=== PATIENT | male | born 1965 | race Two or more races ===

== ENCOUNTER 2019-03-01 16:57 | Inpatient (IN) | payer MEDICAID ==
[~2019-03-01] VITALS: Ht 172.7 cm; Wt 67.6 kg
[2019-03-01] MEDS ORDERED: SODIUM CHLORIDE 0.9% 1,000 ML IV ONE (17:07)
[2019-03-01] MEDS ORDERED: KETOROLAC 30MG/ML VIAL IV STA (17:07)
[2019-03-01] MEDS ORDERED: ONDANSETRON HCL 4MG/2ML INJ IV STA (17:07)
[2019-03-01 19:16] LABS: HEMATOCRIT. 48.9 % (42.0-52.0); HEMOGLOBIN. 16.9 g/dL (14.0-18.0); MEAN CORPUSCULAR HEMOGLOBIN 30.9 pg (28.0-32.0); MEAN CORPUSCULAR VOLUME 89.9 fL (80.0-94.0); MEAN PLATELET VOLUME 7.9 fl (7.4-10.4); PLATELET 353 x1000/uL (130-400); RED BLOOD CELL COUNT 5.45 mill/uL (4.7-6.1); RED CELL DISTRIBUTION WIDTH 13.3 % (11.6-14.6)
[2019-03-01 19:20] LABS: CHLORIDE 100 mEq/L (98-107)
[2019-03-01 19:21] LABS: INR 1.1; PROTHROMBIN TIME 11.2 sec (9.6-11.0)
[2019-03-01] MEDS ORDERED: PIPERACILLIN/TAZ 3.375G PREMIX 50 ML IV ONE (20:15)
[2019-03-01 20:43] LABS: PLATELET ESTIMATE NORMAL
[2019-03-01 21:03] LABS: CLARITY URINE CLOUDY (CLEAR); COLOR URINE YELLOW (YELLOW); KETONES URINE TRACE (NEGATIVE); LEUKOCYTE ESTERASE URINE NEGATIVE (NEGATIVE); NITRITE URINE NEGATIVE (NEGATIVE); OCCULT BLOOD URINE NEGATIVE (NEGATIVE); PH URINE 6.5 (4.5-8.0); PROTEIN URINE 1+ (NEGATIVE); SPECIFIC GRAVITY URINE 1.023 (1.005-1.030); UROBILINOGEN URINE 0.2 E.U./dL (0.2-1.0)
[2019-03-01] MEDS ORDERED: LIDOCAINE HCL/PF 1% 10 MG/ML 5ML VIAL ONE (21:30)
[2019-03-01] MEDS ORDERED: MIDAZOLAM HCL 2 MG/2 ML VIAL ONE (21:30)
[2019-03-01] MEDS ORDERED: ROCURONIUM BROMIDE 10MG/ML VIAL 5ML IV ONE (21:30)
[2019-03-01] MEDS ORDERED: FENTANYL CITRATE/PF 50MCG/ML 2ML VIAL ONE (21:30)
[2019-03-01] MEDS ORDERED: SUCCINYLCHOLINE CHLORIDE 200MG/10ML IV ONE (21:30)
[2019-03-01] MEDS ORDERED: PROPOFOL 200MG/20ML VIAL IV ONE (21:30)
[2019-03-01] MEDS ORDERED: PHENYLEPHRINE HCL 10 MG/ML 1ML (IV VIAL) IV ONE (21:31)
[2019-03-01] MEDS ORDERED: EPHEDRINE SULFATE 50MG/ML VIAL ONE (21:31)
[2019-03-01] MEDS ORDERED: SODIUM CHLORIDE 0.9% 10ML VIAL ONE (21:39)
[2019-03-01] MEDS ORDERED: METRONIDAZOLE 500 MG PREMIX 0 ML IV ONE (21:41)
[2019-03-01] MEDS ORDERED: LEVOFLOXACIN 500MG PREMIX 0 ML IV ONE (21:41)
[2019-03-01] MEDS ORDERED: BUPIVACAINE HCL 0.5% (5MG/ML) 50ML ONE (21:41)
[2019-03-01] MEDS ORDERED: ACETAMINOPHEN 650MG SUPP PR PRN (22:45)
[2019-03-01] MEDS ORDERED: ONDANSETRON HCL 4MG/2ML INJ IV PRN ×2 (22:45→23:15)
[2019-03-01] MEDS ORDERED: HYDROMORPHONE HCL/PF 2MG/ML (OR) ONE (23:04)
[2019-03-01] MEDS ORDERED: MEPERIDINE HCL/PF 25MG/ML CPJ IV PRN (23:15)
[2019-03-01] MEDS ORDERED: LABETALOL 5MG/ML SYR 20 MG/4 ML SYRINGE IV PRN (23:15)
[2019-03-01] MEDS ORDERED: HYDROMORPHONE HCL/PF 2MG/ML CPJ IV PRN (23:15)
[2019-03-01] MEDS ORDERED: GLYCOPYRROLATE 0.2 MG/ML 2ML VIAL ONE (23:18)
[2019-03-01] MEDS ORDERED: NEOSTIGMINE METHYLSULFATE 1MG/ML 10 ML VIAL ONE (23:19)
[2019-03-01] MEDS ORDERED: DEXAMETHASONE 4MG/ML 1ML VIAL ONE (23:31)
[2019-03-02] MEDS ORDERED: NALOXONE INJ IV PRN (00:15)
[2019-03-02] MEDS ORDERED: HYDROMORPHONE PCA 10MG/50ML IV PRN (00:15)
[2019-03-02] MEDS ORDERED: ONDANSETRON INJ IV PRN (00:15)
[2019-03-02 01:30] VITALS: BP 127/85
[2019-03-02] MEDS: PIPERACILLIN/TAZOBACTAM 3.375 G in DEXT 5% WATER 100 ML IV SCH ×4 (02:31→21:39)
[2019-03-02] MEDS: DEXT 5%/0.45% NACL KCL 20MEQ/L 1,000 ML IV SCH ×3 (02:32→21:40)
[2019-03-02 04:00] VITALS: BP 125/86
[2019-03-02 08:00] VITALS: BP 135/88
[2019-03-02] MEDS: FAMOTIDINE 20MG/2ML VIAL IV SCH ×2 (09:21→20:20)
[2019-03-02 10:27] LABS: HEMATOCRIT. 47.6 % (42.0-52.0); MEAN CORPUSCULAR HEMOGLOBIN 30.4 pg (28.0-32.0); MEAN CORPUSCULAR VOLUME 90.5 fL (80.0-94.0); MEAN PLATELET VOLUME 8.4 fl (7.4-10.4); PLATELET 331 x1000/uL (130-400); RED BLOOD CELL COUNT 5.26 mill/uL (4.7-6.1); RED CELL DISTRIBUTION WIDTH 13.3 % (11.6-14.6)
[2019-03-02 10:36] LABS: CHLORIDE 105 mEq/L (98-107)
[2019-03-02 12:00] VITALS: BP 140/97
[2019-03-02 16:00] VITALS: BP 108/68
[2019-03-02 16:20] LABS: ATYPICAL LYMPHOCYTES 1
[2019-03-02 16:21] LABS: PLATELET ESTIMATE NORMAL
[2019-03-02 20:00] VITALS: BP 122/85
[2019-03-02 20:35] LABS: *AMPHETAMINES SCREEN URINE PRESUMTIVE POSITIVE (NEGATIVE); *BARBITURATES SCREEN URINE NEGATIVE (NEGATIVE); *BENZODIAZEPINES SCREEN URINE PRESUMTIVE POSITIVE (NEGATIVE); *COCAINE SCREEN URINE NEGATIVE (NEGATIVE)
[2019-03-02 20:36] LABS: CANNABINOID URINE SCREEN NEGATIVE (NEGATIVE); METHADONE URINE SCREEN NEGATIVE (NEGATIVE); OPIATES URINE SCREEN PRESUMTIVE POSITIVE (NEGATIVE); PHENCYCLIDINE URINE SCREEN NEGATIVE (NEGATIVE)
[2019-03-03] VITALS: BP 110/76
[2019-03-03 04:00] VITALS: BP 118/70
[2019-03-03] MEDS: PIPERACILLIN/TAZOBACTAM 3.375 G in DEXT 5% WATER 100 ML IV SCH ×4 (05:14→22:07)
[2019-03-03] MEDS: DEXT 5%/0.45% NACL KCL 20MEQ/L 1,000 ML IV SCH ×2 (07:41→17:01)
[2019-03-03 08:25] LABS: HEMOGLOBIN. 14.8 g/dL (14.0-18.0); MEAN CORPUSCULAR HEMOGLOBIN 30.6 pg (28.0-32.0); MEAN CORPUSCULAR VOLUME 90.9 fL (80.0-94.0); MEAN PLATELET VOLUME 8.6 fl (7.4-10.4); PLATELET 266 x1000/uL (130-400); RED BLOOD CELL COUNT 4.84 mill/uL (4.7-6.1); RED CELL DISTRIBUTION WIDTH 13.7 % (11.6-14.6)
[2019-03-03 08:35] LABS: CHLORIDE 100 mEq/L (98-107)
[2019-03-03] MEDS: FAMOTIDINE 20MG/2ML VIAL IV SCH ×2 (10:43→20:26)
[2019-03-03 10:47] LABS: PLATELET ESTIMATE NORMAL
[2019-03-03 16:00] VITALS: BP 124/77
[2019-03-03 20:00] VITALS: BP 112/69
[2019-03-04] VITALS: BP 119/81
[2019-03-04] MEDS: DEXT 5%/0.45% NACL KCL 20MEQ/L 1,000 ML IV SCH ×2 (03:09→13:11)
[2019-03-04 04:00] VITALS: BP 125/79
[2019-03-04] MEDS: PIPERACILLIN/TAZOBACTAM 3.375 G in DEXT 5% WATER 100 ML IV SCH ×4 (06:08→22:05)
[2019-03-04 08:00] VITALS: BP 126/78
[2019-03-04 08:00] LABS: HEMATOCRIT. 45.7 % (42.0-52.0); HEMOGLOBIN. 15.7 g/dL (14.0-18.0); MEAN CORPUSCULAR HEMOGLOBIN 30.9 pg (28.0-32.0); MEAN CORPUSCULAR VOLUME 90.2 fL (80.0-94.0); MEAN PLATELET VOLUME 8.3 fl (7.4-10.4); PLATELET 298 x1000/uL (130-400); RED BLOOD CELL COUNT 5.07 mill/uL (4.7-6.1); RED CELL DISTRIBUTION WIDTH 13.2 % (11.6-14.6)
[2019-03-04 08:28] LABS: CHLORIDE 98 mEq/L (98-107)
[2019-03-04] MEDS: FAMOTIDINE 20MG/2ML VIAL IV SCH ×2 (09:11→22:05)
[2019-03-04 12:00] VITALS: BP 129/83
[2019-03-04 16:00] VITALS: BP 121/81
[2019-03-04] MEDS: MORPHINE SULFATE 2 MG/ML CPJ (NOT FOR IM USE) IV PRN ×2 (17:31→19:56)
[2019-03-04 20:00] VITALS: BP 113/76
[2019-03-05] VITALS: BP 107/71
[2019-03-05] MEDS: MORPHINE SULFATE 2 MG/ML CPJ (NOT FOR IM USE) IV PRN ×5 (03:34→18:54)
[2019-03-05] MEDS: PIPERACILLIN/TAZOBACTAM 3.375 G in DEXT 5% WATER 100 ML IV SCH ×2 (03:34→10:25)
[2019-03-05 04:00] VITALS: BP 105/69
[2019-03-05] MEDS: DEXT 5%/0.45% NACL KCL 20MEQ/L 1,000 ML IV SCH ×2 (05:22→09:02)
[2019-03-05 06:35] LABS: PLATELET ESTIMATE NORMAL
[2019-03-05 07:02] LABS: CHLORIDE 100 mEq/L (98-107)
[2019-03-05 07:13] LABS: HEMATOCRIT. 43.1 % (42.0-52.0); HEMOGLOBIN. 14.7 g/dL (14.0-18.0); MEAN CORPUSCULAR VOLUME 90.7 fL (80.0-94.0); PLATELET 316 x1000/uL (130-400); RED BLOOD CELL COUNT 4.75 mill/uL (4.7-6.1); RED CELL DISTRIBUTION WIDTH 13.3 % (11.6-14.6)
[2019-03-05 08:00] VITALS: BP 119/83
[2019-03-05] MEDS: FAMOTIDINE 20MG/2ML VIAL IV SCH ×2 (09:02→20:33)
[2019-03-05 12:00] VITALS: BP 118/85
[2019-03-05] MEDS ORDERED: HYDROCODONE/ACETAMINOPHEN 5/325MG TABLET PO PRN (15:45)
[2019-03-05 16:00] VITALS: BP 124/83
[2019-03-05] MEDS: CEFAZOLIN 1000MG PREMIX 50 ML IV SCH (18:50)
[2019-03-05 20:00] VITALS: BP 138/92
[2019-03-06] VITALS: BP 153/102
[2019-03-06] MEDS: CEFAZOLIN 1000MG PREMIX 50 ML IV SCH ×3 (02:15→17:54)
[2019-03-06 04:00] VITALS: BP 148/101
[2019-03-06 06:32] LABS: CHLORIDE 94 mEq/L (98-107)
[2019-03-06 06:38] LABS: HEMATOCRIT. 45.8 % (42.0-52.0); HEMOGLOBIN. 15.5 g/dL (14.0-18.0); MEAN CORPUSCULAR HEMOGLOBIN 30.5 pg (28.0-32.0); MEAN CORPUSCULAR VOLUME 90.3 fL (80.0-94.0); MEAN PLATELET VOLUME 7.8 fl (7.4-10.4); PLATELET 439 x1000/uL (130-400); RED BLOOD CELL COUNT 5.08 mill/uL (4.7-6.1); RED CELL DISTRIBUTION WIDTH 13.2 % (11.6-14.6)
[2019-03-06 07:07] LABS: PLATELET ESTIMATE NORMAL
[2019-03-06 08:00] VITALS: BP 129/86
[2019-03-06] MEDS: FAMOTIDINE 20MG/2ML VIAL IV SCH ×2 (09:36→21:04)
[2019-03-06] MEDS: DEXT 5%/0.45% NACL KCL 20MEQ/L 1,000 ML IV SCH (11:42)
[2019-03-06 12:00] VITALS: BP 137/91
[2019-03-06 12:40] LABS: PLATELET ESTIMATE INCREASED
[2019-03-06 16:00] VITALS: BP 128/88
[2019-03-06 20:00] VITALS: BP 122/80
[2019-03-07] VITALS: BP 120/83
[2019-03-07] MEDS: CEFAZOLIN 1000MG PREMIX 50 ML IV SCH ×3 (01:55→17:10)
[2019-03-07 04:00] VITALS: BP 131/84
[2019-03-07 07:27] LABS: BASOPHILS % 0.4 % (0.0-2.0); EOSINOPHILS % 1.3 % (0.0-5.0); HEMATOCRIT. 43.7 % (42.0-52.0); HEMOGLOBIN. 14.8 g/dL (14.0-18.0); MEAN CORPUSCULAR HEMOGLOBIN 30.5 pg (28.0-32.0); MEAN CORPUSCULAR VOLUME 89.6 fL (80.0-94.0); MEAN PLATELET VOLUME 7.9 fl (7.4-10.4); MONOCYTES % 11.5 % (2.0-8.0); NEUTROPHILS % 77.8 % (40.0-76.0); PLATELET 399 x1000/uL (130-400); RED BLOOD CELL COUNT 4.87 mill/uL (4.7-6.1); RED CELL DISTRIBUTION WIDTH 13.2 % (11.6-14.6)
[2019-03-07 07:46] LABS: CHLORIDE 96 mEq/L (98-107)
[2019-03-07 08:00] VITALS: BP 134/89
[2019-03-07] MEDS: FAMOTIDINE 20MG/2ML VIAL IV SCH ×2 (08:22→22:18)
[2019-03-07] MEDS: DEXT 5%/0.45% NACL KCL 20MEQ/L 1,000 ML IV SCH ×2 (11:14→22:06)
[2019-03-07 12:00] VITALS: BP 129/87
[2019-03-07] MEDS ORDERED: AZITHROMYCIN 500 MG TABLET PO NR (12:45)
[2019-03-07 16:00] VITALS: BP 130/84
[2019-03-07 20:00] VITALS: BP 110/72
[2019-03-08] VITALS: BP 120/94
[2019-03-08] MEDS: CEFAZOLIN 1000MG PREMIX 50 ML IV SCH ×2 (02:25→09:23)
[2019-03-08 04:00] VITALS: BP 130/83
[2019-03-08 06:58] LABS: BASOPHILS % 0.4 % (0.0-2.0); EOSINOPHILS % 1.8 % (0.0-5.0); HEMATOCRIT. 43.7 % (42.0-52.0); LYMPHOCYTES % 9.5 % (20.0-50.0); MEAN CORPUSCULAR HEMOGLOBIN 30.7 pg (28.0-32.0); MEAN CORPUSCULAR VOLUME 89.2 fL (80.0-94.0); MEAN PLATELET VOLUME 7.5 fl (7.4-10.4); MONOCYTES % 11.8 % (2.0-8.0); NEUTROPHILS % 76.5 % (40.0-76.0); PLATELET 430 x1000/uL (130-400); RED CELL DISTRIBUTION WIDTH 13.4 % (11.6-14.6)
[2019-03-08 07:41] LABS: CHLORIDE 99 mEq/L (98-107)
[2019-03-08 08:00] VITALS: BP 130/88
[2019-03-08] MEDS: FAMOTIDINE 20MG/2ML VIAL IV SCH (09:23)
[2019-03-08 12:00] VITALS: BP 138/83
[2019-03-08 13:03] VITALS: BP 122/64
== END 2019-03-08 16:07 | disposition home or self-care (01) | DRG 710 ==
LOC: ER 16:57 → ENRESERV 21:23 → CANRESERV 21:23 → EDBEDREQSVC 23:14 → 6EST 23:15 → ENRESERV 23:17
PROVIDERS: ADMIT Internal Medicine; ATTEND Emergency Medicine
PROC: 0DU907Z Supplement Duodenum with Autologous Tissue Substitute, Open Approach (ICD-10-PCS; principal; 2019-03-01)
DX: A41.9 Sepsis, unspecified organism (principal); K63.1 Perforation of intestine (nontraumatic); K26.5 Chronic or unspecified duodenal ulcer with perforation; E87.1 Hypo-osmolality and hyponatremia; F15.90 Other stimulant use, unspecified, uncomplicated; K21.9 Gastro-esophageal reflux disease without esophagitis; R10.0 Acute abdomen; Z71.51 Drug abuse counseling and surveillance of drug abuser
CPT/HCPCS: 36415; 71045; 74018; 74176; 80048; 80053; 80305; 81003; 85025; 87070; 87075; 87077; 87186; 96361; 96365; 96375; 97116; 97162; 97535; 99291; J0330; J0690; J1100; J1170; J1885; J1956; J2250; J2270; J2370; J2405; J2543; J2704; J2710; J3010; J3490; J7030; J7060

== ENCOUNTER 2019-09-11 22:40 | Inpatient (IN) | payer MEDICAID, OTHER, SELFPAY ==
[~2019-09-11] VITALS: Ht 182.9 cm; Wt 71.7 kg
[2019-09-11] MEDS ORDERED: MORPHINE SULFATE 4 MG/ML CPJ (NOT FOR IM USE) IV STA (23:53)
[2019-09-11] MEDS ORDERED: SODIUM CHLORIDE 0.9% 1,000 ML IV ONE (23:53)
[2019-09-11] MEDS ORDERED: ONDANSETRON HCL 4MG/2ML INJ IV STA (23:53)
[2019-09-12] VITALS (36 sets, daily range): BP systolic 110–153; BP diastolic 64–109
[2019-09-12 00:06] LABS: CHLORIDE 100 mEq/L (98-107)
[2019-09-12 00:08] LABS: HEMATOCRIT. 55.3 % (42.0-52.0); HEMOGLOBIN. 18.8 g/dL (14.0-18.0); MEAN CORPUSCULAR HEMOGLOBIN 30.4 pg (28.0-32.0); MEAN CORPUSCULAR VOLUME 89.3 fL (80.0-94.0); MEAN PLATELET VOLUME 8.8 fl (7.4-10.4); PLATELET 309 x1000/uL (130-400); RED CELL DISTRIBUTION WIDTH 13.8 % (11.6-14.6)
[2019-09-12 00:09] LABS: ETHANOL BLOOD < 10 mg/dL
[2019-09-12 00:13] LABS: INR 1.1; PROTHROMBIN TIME 11.4 sec (9.6-11.0)
[2019-09-12 00:31] LABS: CLARITY URINE CLEAR (CLEAR); COLOR URINE DARK YELLOW (YELLOW); KETONES URINE 3+ (NEGATIVE); LEUKOCYTE ESTERASE URINE NEGATIVE (NEGATIVE); NITRITE URINE NEGATIVE (NEGATIVE); OCCULT BLOOD URINE TRACE (NEGATIVE); PROTEIN URINE 2+ (NEGATIVE); SPECIFIC GRAVITY URINE 1.034 (1.005-1.030)
[2019-09-12] MEDS ORDERED: IOHEXOL-300 100 ML BOTTLE ONE (01:09)
[2019-09-12] MEDS ORDERED: PIPERACILLIN/TAZOBACTAM 3.375GM/50ML PREMIX IV ONE (01:15)
[2019-09-12] MEDS ORDERED: PIPERACILLIN/TAZ 3.375G PREMIX 50 ML IV NR (01:30)
[2019-09-12] MEDS ORDERED: MORPHINE SULFATE 4 MG/ML CPJ (NOT FOR IM USE) IV ONE (01:30)
[2019-09-12] MEDS ORDERED: SODIUM CHLORIDE 0.9% 1,000 ML IV ONE (01:30)
[2019-09-12] MEDS ORDERED: LIDOCAINE HCL 1% 20ML VIAL (Pyxis) INJ ONE (01:42)
[2019-09-12 06:11] LABS: *COCAINE SCREEN URINE NEGATIVE (NEGATIVE); METHADONE URINE SCREEN NEGATIVE (NEGATIVE)
[2019-09-12 06:12] LABS: *AMPHETAMINES SCREEN URINE PRESUMTIVE POSITIVE (NEGATIVE); *BARBITURATES SCREEN URINE NEGATIVE (NEGATIVE); *BENZODIAZEPINES SCREEN URINE NEGATIVE (NEGATIVE); CANNABINOID URINE SCREEN NEGATIVE (NEGATIVE); OPIATES URINE SCREEN NEGATIVE (NEGATIVE); PHENCYCLIDINE URINE SCREEN NEGATIVE (NEGATIVE)
[2019-09-12] MEDS ORDERED: ONDANSETRON HCL 4MG/2ML INJ IV PRN (06:30)
[2019-09-12] MEDS ORDERED: MIDAZOLAM HCL 2 MG/2 ML VIAL ONE (06:54)
[2019-09-12] MEDS ORDERED: ROCURONIUM BROMIDE 10MG/ML VIAL 5ML IV ONE ×2 (06:54→07:39)
[2019-09-12] MEDS ORDERED: FENTANYL CITRATE/PF 50MCG/ML 2ML VIAL ONE (06:54)
[2019-09-12] MEDS ORDERED: PROPOFOL 200MG/20ML VIAL IV ONE (06:54)
[2019-09-12] MEDS ORDERED: METHYLENE BLUE 50 MG/10 ML AMP IV ONE (07:19)
[2019-09-12] MEDS ORDERED: ONDANSETRON HCL 4MG/2ML INJ ONE (07:38)
[2019-09-12] MEDS ORDERED: LIDOCAINE HCL/PF 1% 10 MG/ML 5ML VIAL ONE (07:38)
[2019-09-12] MEDS ORDERED: NEOSTIGMINE METHYLSULFATE 1MG/ML 10 ML VIAL ONE (08:37)
[2019-09-12] MEDS ORDERED: GLYCOPYRROLATE 0.2 MG/ML 2ML VIAL ONE (08:37)
[2019-09-12] MEDS ORDERED: DEXT 5%/0.45% NACL KCL 20MEQ/L 1,000 ML IV SCH (10:30)
[2019-09-12] MEDS ORDERED: IPRATROPIUM/ALBUTEROL 0.5-3(2.5)MG/3ML NEB HHN PRN (10:30)
[2019-09-12] MEDS ORDERED: MAGNESIUM/ALUMINUM HYDROXIDE/SIMETHICONE 30ML UDC PO PRN (12:00)
[2019-09-12] MEDS ORDERED: HYDRALAZINE 20MG/ML VIAL IV PRN (12:00)
[2019-09-12] MEDS ORDERED: LORAZEPAM 2MG/ML CPJ IV PRN (12:00)
[2019-09-12] MEDS ORDERED: ACETAMINOPHEN 325MG TABLET PO PRN (12:00)
[2019-09-12] MEDS ORDERED: CLONIDINE 0.1MG TABLET PO PRN (12:00)
[2019-09-12] MEDS ORDERED: GUAIFENESIN 200MG/10ML SUGAR FREE UDC PO PRN (12:00)
[2019-09-12 12:01] LABS: PLATELET ESTIMATE NORMAL
[2019-09-12] MEDS: MORPHINE SULFATE 4 MG/ML CPJ (NOT FOR IM USE) IV PRN ×2 (12:46→17:35)
[2019-09-12] MEDS: PIPERACILLIN/TAZOBACTAM 3.375 G in DEXT 5% WATER 100 ML IV SCH ×2 (13:57→18:19)
[2019-09-12] MEDS: SODIUM CHLORIDE 0.9% INJ 3ML FLUSH IVF SCH ×2 (14:01→22:00)
[2019-09-12] MEDS ORDERED: SODIUM CHLORIDE 0.9% 500 ML IV ONE (15:30)
[2019-09-12] MEDS ORDERED: METOPROLOL TARTRATE 5MG/5ML VIAL IV PRN (15:30)
[2019-09-12 17:02] LABS: CHLORIDE 108 mEq/L (98-107)
[2019-09-12] MEDS: DEXT 5%/0.45% NACL KCL 20MEQ/L 1,000 ML IV SCH (23:00)
[2019-09-13] VITALS (34 sets, daily range): BP systolic 96–145; BP diastolic 49–92
[2019-09-13 05:53] LABS: BASOPHILS % 0.3 % (0.0-2.0); EOSINOPHILS % 0.1 % (0.0-5.0); HEMOGLOBIN. 14.3 g/dL (14.0-18.0); LYMPHOCYTES % 7.6 % (20.0-50.0); MEAN CORPUSCULAR HEMOGLOBIN 30.6 pg (28.0-32.0); MEAN CORPUSCULAR VOLUME 89.9 fL (80.0-94.0); MEAN PLATELET VOLUME 8.8 fl (7.4-10.4); MONOCYTES % 6.8 % (2.0-8.0); NEUTROPHILS % 85.2 % (40.0-76.0); PLATELET 243 x1000/uL (130-400); RED BLOOD CELL COUNT 4.68 mill/uL (4.7-6.1); RED CELL DISTRIBUTION WIDTH 14.1 % (11.6-14.6)
[2019-09-13 05:58] LABS: CHLORIDE 105 mEq/L (98-107)
[2019-09-13] MEDS: PIPERACILLIN/TAZOBACTAM 3.375 G in DEXT 5% WATER 100 ML IV SCH ×5 (06:03→17:32)
[2019-09-13] MEDS: SODIUM CHLORIDE 0.9% INJ 3ML FLUSH IVF SCH ×3 (06:04→21:31)
[2019-09-13] MEDS: MORPHINE SULFATE 2 MG/ML CPJ (NOT FOR IM USE) IV PRN (06:44)
[2019-09-13] MEDS: ENOXAPARIN 40MG/0.4ML SYR SUBCUT SCH (08:18)
[2019-09-13] MEDS: PANTOPRAZOLE SODIUM 40 MG/VIAL IV SCH (08:18)
[2019-09-13] MEDS: DEXT 5%/0.45% NACL KCL 20MEQ/L 1,000 ML IV SCH ×2 (09:00→19:56)
[2019-09-13 15:56] LABS: CREATINE KINASE 269 IU/L (39-308)
[2019-09-13 15:57] LABS: CREATINE KINASE MB FRACTION 1.4 ng/mL (0.5-3.6)
[2019-09-14] VITALS (13 sets, daily range): BP systolic 89–130; BP diastolic 55–82
[2019-09-14] MEDS: PIPERACILLIN/TAZOBACTAM 3.375 G in DEXT 5% WATER 100 ML IV SCH ×5 (00:41→23:45)
[2019-09-14 00:42] LABS: CREATINE KINASE 228 IU/L (39-308)
[2019-09-14 00:43] LABS: CREATINE KINASE MB FRACTION 1.2 ng/mL (0.5-3.6)
[2019-09-14] MEDS: ONDANSETRON HCL 4MG/2ML INJ IV PRN (03:16)
[2019-09-14] MEDS: SODIUM CHLORIDE 0.9% INJ 3ML FLUSH IVF SCH ×3 (05:24→21:37)
[2019-09-14] MEDS: DEXT 5%/0.45% NACL KCL 20MEQ/L 1,000 ML IV SCH ×3 (06:11→23:45)
[2019-09-14 06:26] LABS: CREATINE KINASE 195 IU/L (39-308)
[2019-09-14 06:27] LABS: CREATINE KINASE MB FRACTION < 1.0 ng/mL (0.5-3.6)
[2019-09-14] MEDS: ENOXAPARIN 40MG/0.4ML SYR SUBCUT SCH (10:08)
[2019-09-14] MEDS: PANTOPRAZOLE SODIUM 40 MG/VIAL IV SCH (10:08)
[2019-09-15] VITALS (11 sets, daily range): BP systolic 111–145; BP diastolic 63–94
[2019-09-15] MEDS: SODIUM CHLORIDE 0.9% INJ 3ML FLUSH IVF SCH ×3 (05:20→22:30)
[2019-09-15] MEDS: PIPERACILLIN/TAZOBACTAM 3.375 G in DEXT 5% WATER 100 ML IV SCH ×4 (05:20→23:20)
[2019-09-15] MEDS: MORPHINE SULFATE 2 MG/ML CPJ (NOT FOR IM USE) IV PRN (05:58)
[2019-09-15 07:37] LABS: HEMATOCRIT 34.8 % (42.0-52.0); HEMOGLOBIN 12.3 g/dL (14.0-18.0); MEAN CORPUSCULAR HEMOGLOBIN 31.2 pg (28.0-32.0); MEAN CORPUSCULAR VOLUME 88.3 fL (80.0-94.0); PLATELET 288 x1000/uL (130-400); RED BLOOD CELL COUNT 3.94 mill/uL (4.7-6.1); RED CELL DISTRIBUTION WIDTH 13.9 % (11.6-14.6)
[2019-09-15 07:52] LABS: CHLORIDE 102 mEq/L (98-107)
[2019-09-15] MEDS: ENOXAPARIN 40MG/0.4ML SYR SUBCUT SCH (08:30)
[2019-09-15] MEDS: PANTOPRAZOLE SODIUM 40 MG/VIAL IV SCH (08:30)
[2019-09-15] MEDS: DEXT 5%/0.45% NACL KCL 20MEQ/L 1,000 ML IV SCH ×2 (11:18→22:29)
[2019-09-15] MEDS: ONDANSETRON HCL 4MG/2ML INJ IV PRN (13:43)
[2019-09-16] VITALS (12 sets, daily range): BP systolic 120–141; BP diastolic 73–102
[2019-09-16] MEDS: PIPERACILLIN/TAZOBACTAM 3.375 G in DEXT 5% WATER 100 ML IV SCH ×4 (05:16→23:42)
[2019-09-16] MEDS: SODIUM CHLORIDE 0.9% INJ 3ML FLUSH IVF SCH ×3 (05:18→21:24)
[2019-09-16] MEDS: ENOXAPARIN 40MG/0.4ML SYR SUBCUT SCH (08:24)
[2019-09-16] MEDS: PANTOPRAZOLE SODIUM 40 MG/VIAL IV SCH (08:24)
[2019-09-16] MEDS: DEXT 5%/0.45% NACL KCL 20MEQ/L 1,000 ML IV SCH (11:42)
[2019-09-16] MEDS ORDERED: LIDOCAINE HCL/EPINEPHRINE 1%-EPI 1:100,000 30 ML VIAL INFIL ONE (12:30)
[2019-09-16] MEDS ORDERED: LIDOCAINE 1%/EPI 1:100,000 10 ML VIAL IJ NR (13:00)
[2019-09-16] MEDS ORDERED: LIDOCAINE 1%/EPI 1:100,000 10 ML VIAL IJ SCH (13:00)
[2019-09-16] MEDS ORDERED: MORPHINE SULFATE 2 MG/ML CPJ (NOT FOR IM USE) IV PRN (14:30)
[2019-09-17] VITALS (12 sets, daily range): BP systolic 107–148; BP diastolic 43–97
[2019-09-17] MEDS: ONDANSETRON HCL 4MG/2ML INJ IV PRN (02:18)
[2019-09-17] MEDS: DEXT 5%/0.45% NACL KCL 20MEQ/L 1,000 ML IV SCH ×4 (04:44→23:19)
[2019-09-17] MEDS: SODIUM CHLORIDE 0.9% INJ 3ML FLUSH IVF SCH ×3 (05:06→22:00)
[2019-09-17] MEDS: PIPERACILLIN/TAZOBACTAM 3.375 G in DEXT 5% WATER 100 ML IV SCH ×3 (05:06→18:24)
[2019-09-17 05:48] LABS: CHLORIDE 99 mEq/L (98-107)
[2019-09-17 06:36] LABS: EOSINOPHILS % 5.1 % (0.0-5.0); HEMATOCRIT. 37.1 % (42.0-52.0); HEMOGLOBIN. 12.8 g/dL (14.0-18.0); LYMPHOCYTES % 9.8 % (20.0-50.0); MEAN CORPUSCULAR HEMOGLOBIN 30.2 pg (28.0-32.0); MEAN CORPUSCULAR VOLUME 87.6 fL (80.0-94.0); MEAN PLATELET VOLUME 7.5 fl (7.4-10.4); MONOCYTES % 10.9 % (2.0-8.0); NEUTROPHILS % 73.2 % (40.0-76.0); PLATELET 409 x1000/uL (130-400); RED BLOOD CELL COUNT 4.23 mill/uL (4.7-6.1); RED CELL DISTRIBUTION WIDTH 13.6 % (11.6-14.6)
[2019-09-17] MEDS ORDERED: POTASSIUM CHLORIDE 20MEQ/PACKET GT NR (08:00)
[2019-09-17] MEDS: PANTOPRAZOLE SODIUM 40 MG/VIAL IV SCH (08:19)
[2019-09-17] MEDS: ENOXAPARIN 40MG/0.4ML SYR SUBCUT SCH (08:20)
[2019-09-18] VITALS (12 sets, daily range): BP systolic 90–133; BP diastolic 50–83
[2019-09-18] MEDS: SODIUM CHLORIDE 0.9% INJ 3ML FLUSH IVF SCH ×3 (05:21→20:00)
[2019-09-18 06:56] LABS: CHLORIDE 99 mEq/L (98-107)
[2019-09-18 07:00] LABS: BASOPHILS % 1.2 % (0.0-2.0); HEMATOCRIT. 39.8 % (42.0-52.0); HEMOGLOBIN. 14.1 g/dL (14.0-18.0); LYMPHOCYTES % 11.1 % (20.0-50.0); MEAN CORPUSCULAR HEMOGLOBIN 31.1 pg (28.0-32.0); MEAN CORPUSCULAR VOLUME 87.7 fL (80.0-94.0); MEAN PLATELET VOLUME 7.3 fl (7.4-10.4); MONOCYTES % 11.1 % (2.0-8.0); NEUTROPHILS % 70.6 % (40.0-76.0); PLATELET 494 x1000/uL (130-400); RED BLOOD CELL COUNT 4.54 mill/uL (4.7-6.1); RED CELL DISTRIBUTION WIDTH 13.8 % (11.6-14.6)
[2019-09-18] MEDS: PANTOPRAZOLE SODIUM 40 MG/VIAL IV SCH (08:32)
[2019-09-18] MEDS: ENOXAPARIN 40MG/0.4ML SYR SUBCUT SCH (08:33)
[2019-09-18] MEDS: DEXT 5%/0.45% NACL KCL 20MEQ/L 1,000 ML IV SCH ×2 (10:07→20:00)
[2019-09-19] VITALS (11 sets, daily range): BP systolic 114–128; BP diastolic 61–92
[2019-09-19] MEDS: SODIUM CHLORIDE 0.9% INJ 3ML FLUSH IVF SCH ×3 (05:15→22:48)
[2019-09-19] MEDS: DEXT 5%/0.45% NACL KCL 20MEQ/L 1,000 ML IV SCH ×2 (05:15→15:37)
[2019-09-19 06:35] LABS: BASOPHILS % 0.6 % (0.0-2.0); EOSINOPHILS % 4.6 % (0.0-5.0); HEMATOCRIT. 40.6 % (42.0-52.0); HEMOGLOBIN. 14.2 g/dL (14.0-18.0); LYMPHOCYTES % 10.1 % (20.0-50.0); MEAN CORPUSCULAR HEMOGLOBIN 30.5 pg (28.0-32.0); MEAN CORPUSCULAR VOLUME 87.5 fL (80.0-94.0); MEAN PLATELET VOLUME 7.4 fl (7.4-10.4); MONOCYTES % 9.2 % (2.0-8.0); NEUTROPHILS % 75.5 % (40.0-76.0); PLATELET 555 x1000/uL (130-400); RED BLOOD CELL COUNT 4.64 mill/uL (4.7-6.1)
[2019-09-19 06:45] LABS: CHLORIDE 99 mEq/L (98-107)
[2019-09-19] MEDS: PANTOPRAZOLE SODIUM 40 MG/VIAL IV SCH (10:01)
[2019-09-19] MEDS: ENOXAPARIN 40MG/0.4ML SYR SUBCUT SCH (10:02)
[2019-09-20] VITALS (12 sets, daily range): BP systolic 84–138; BP diastolic 38–105
[2019-09-20] MEDS: DIPHENHYDRAMINE 50MG/ML VIAL IV PRN (02:40)
[2019-09-20] MEDS: DEXT 5%/0.45% NACL KCL 20MEQ/L 1,000 ML IV SCH ×3 (02:40→22:09)
[2019-09-20] MEDS: SODIUM CHLORIDE 0.9% INJ 3ML FLUSH IVF SCH ×3 (05:59→22:09)
[2019-09-20 06:33] LABS: BASOPHILS % 1.1 % (0.0-2.0); EOSINOPHILS % 4.9 % (0.0-5.0); HEMATOCRIT. 41.4 % (42.0-52.0); HEMOGLOBIN. 14.7 g/dL (14.0-18.0); LYMPHOCYTES % 11.7 % (20.0-50.0); MEAN CORPUSCULAR VOLUME 87.6 fL (80.0-94.0); MEAN PLATELET VOLUME 7.2 fl (7.4-10.4); NEUTROPHILS % 72.3 % (40.0-76.0); PLATELET 605 x1000/uL (130-400); RED BLOOD CELL COUNT 4.73 mill/uL (4.7-6.1); RED CELL DISTRIBUTION WIDTH 13.8 % (11.6-14.6)
[2019-09-20 06:39] LABS: CHLORIDE 94 mEq/L (98-107)
[2019-09-20] MEDS: DOCUSATE SODIUM 100MG CAPSULE PO PRN (10:55)
[2019-09-20] MEDS: ONDANSETRON HCL 4MG/2ML INJ IV PRN (10:55)
[2019-09-20] MEDS: PANTOPRAZOLE SODIUM 40 MG/VIAL IV SCH (10:55)
[2019-09-20] MEDS: ENOXAPARIN 40MG/0.4ML SYR SUBCUT SCH (10:55)
[2019-09-21] VITALS (12 sets, daily range): BP systolic 108–134; BP diastolic 72–98
[2019-09-21] MEDS: SODIUM CHLORIDE 0.9% INJ 3ML FLUSH IVF SCH ×3 (06:19→21:18)
[2019-09-21] MEDS: DEXT 5%/0.45% NACL KCL 20MEQ/L 1,000 ML IV SCH ×2 (08:40→17:48)
[2019-09-21] MEDS: ENOXAPARIN 40MG/0.4ML SYR SUBCUT SCH (08:40)
[2019-09-21] MEDS: PANTOPRAZOLE SODIUM 40 MG/VIAL IV SCH (08:40)
[2019-09-22] VITALS (12 sets, daily range): BP systolic 107–140; BP diastolic 54–82
[2019-09-22] MEDS: DIPHENHYDRAMINE 50MG/ML VIAL IV PRN (01:35)
[2019-09-22] MEDS: DEXT 5%/0.45% NACL KCL 20MEQ/L 1,000 ML IV SCH ×3 (03:52→23:21)
[2019-09-22] MEDS: SODIUM CHLORIDE 0.9% INJ 3ML FLUSH IVF SCH ×3 (05:02→21:24)
[2019-09-22 07:10] LABS: BASOPHILS % 1.2 % (0.0-2.0); EOSINOPHILS % 4.1 % (0.0-5.0); HEMOGLOBIN. 13.2 g/dL (14.0-18.0); LYMPHOCYTES % 16.8 % (20.0-50.0); MEAN CORPUSCULAR HEMOGLOBIN 30.9 pg (28.0-32.0); MEAN CORPUSCULAR VOLUME 86.6 fL (80.0-94.0); MEAN PLATELET VOLUME 7.6 fl (7.4-10.4); MONOCYTES % 9.1 % (2.0-8.0); NEUTROPHILS % 68.8 % (40.0-76.0); PLATELET 549 x1000/uL (130-400); RED BLOOD CELL COUNT 4.27 mill/uL (4.7-6.1); RED CELL DISTRIBUTION WIDTH 13.5 % (11.6-14.6)
[2019-09-22 07:51] LABS: CHLORIDE 95 mEq/L (98-107)
[2019-09-22] MEDS: PANTOPRAZOLE SODIUM 40 MG/VIAL IV SCH (08:46)
[2019-09-22] MEDS: ENOXAPARIN 40MG/0.4ML SYR SUBCUT SCH (08:47)
[2019-09-23] VITALS (12 sets, daily range): BP systolic 94–123; BP diastolic 41–79
[2019-09-23] MEDS: DIPHENHYDRAMINE 50MG/ML VIAL IV PRN (00:23)
[2019-09-23] MEDS: SODIUM CHLORIDE 0.9% INJ 3ML FLUSH IVF SCH ×3 (05:24→22:42)
[2019-09-23 07:13] LABS: BASOPHILS % 1.3 % (0.0-2.0); CHLORIDE 97 mEq/L (98-107); EOSINOPHILS % 4.2 % (0.0-5.0); HEMATOCRIT. 37.7 % (42.0-52.0); LYMPHOCYTES % 16.3 % (20.0-50.0); MEAN CORPUSCULAR HEMOGLOBIN 30.5 pg (28.0-32.0); MEAN CORPUSCULAR VOLUME 88.3 fL (80.0-94.0); MEAN PLATELET VOLUME 7.6 fl (7.4-10.4); MONOCYTES % 8.7 % (2.0-8.0); NEUTROPHILS % 69.5 % (40.0-76.0); PLATELET 488 x1000/uL (130-400); RED BLOOD CELL COUNT 4.27 mill/uL (4.7-6.1); RED CELL DISTRIBUTION WIDTH 13.5 % (11.6-14.6)
[2019-09-23] MEDS: ENOXAPARIN 40MG/0.4ML SYR SUBCUT SCH (09:12)
[2019-09-23] MEDS: PANTOPRAZOLE SODIUM 40 MG/VIAL IV SCH (09:12)
[2019-09-23] MEDS: DEXT 5%/0.45% NACL KCL 20MEQ/L 1,000 ML IV SCH ×2 (09:34→18:26)
[2019-09-24] VITALS (12 sets, daily range): BP systolic 100–153; BP diastolic 66–93
[2019-09-24] MEDS: DIPHENHYDRAMINE 50MG/ML VIAL IV PRN ×2 (00:31→23:30)
[2019-09-24] MEDS: DEXT 5%/0.45% NACL KCL 20MEQ/L 1,000 ML IV SCH ×2 (04:33→15:47)
[2019-09-24] MEDS: SODIUM CHLORIDE 0.9% INJ 3ML FLUSH IVF SCH ×3 (06:06→21:49)
[2019-09-24] MEDS: ENOXAPARIN 40MG/0.4ML SYR SUBCUT SCH (09:58)
[2019-09-24] MEDS: PANTOPRAZOLE SODIUM 40 MG/VIAL IV SCH (09:58)
[2019-09-25] VITALS (12 sets, daily range): BP systolic 90–129; BP diastolic 53–74
[2019-09-25] MEDS: DEXT 5%/0.45% NACL KCL 20MEQ/L 1,000 ML IV SCH ×3 (01:21→20:52)
[2019-09-25] MEDS: SODIUM CHLORIDE 0.9% INJ 3ML FLUSH IVF SCH ×2 (05:34→14:41)
[2019-09-25] MEDS: ENOXAPARIN 40MG/0.4ML SYR SUBCUT SCH (08:53)
[2019-09-25] MEDS: PANTOPRAZOLE SODIUM 40 MG/VIAL IV SCH (08:53)
[2019-09-25] MEDS: DIPHENHYDRAMINE 50MG/ML VIAL IV PRN (23:42)
[2019-09-26] VITALS (12 sets, daily range): BP systolic 90–141; BP diastolic 32–95
[2019-09-26] MEDS: SODIUM CHLORIDE 0.9% INJ 3ML FLUSH IVF SCH ×4 (00:39→23:26)
[2019-09-26 05:12] LABS: BASOPHILS % 1.4 % (0.0-2.0); HEMATOCRIT. 37.9 % (42.0-52.0); HEMOGLOBIN. 12.8 g/dL (14.0-18.0); LYMPHOCYTES % 19.7 % (20.0-50.0); MEAN CORPUSCULAR HEMOGLOBIN 29.8 pg (28.0-32.0); MEAN CORPUSCULAR VOLUME 88.4 fL (80.0-94.0); MEAN PLATELET VOLUME 7.7 fl (7.4-10.4); NEUTROPHILS % 65.9 % (40.0-76.0); PLATELET 456 x1000/uL (130-400); RED BLOOD CELL COUNT 4.29 mill/uL (4.7-6.1); RED CELL DISTRIBUTION WIDTH 13.5 % (11.6-14.6)
[2019-09-26 05:16] LABS: CHLORIDE 102 mEq/L (98-107)
[2019-09-26] MEDS: DEXT 5%/0.45% NACL KCL 20MEQ/L 1,000 ML IV SCH ×2 (06:36→17:43)
[2019-09-26] MEDS: PANTOPRAZOLE SODIUM 40 MG/VIAL IV SCH (08:41)
[2019-09-26] MEDS: ENOXAPARIN 40MG/0.4ML SYR SUBCUT SCH (08:42)
[2019-09-27] VITALS (13 sets, daily range): BP systolic 93–121; BP diastolic 46–92
[2019-09-27] MEDS: DIPHENHYDRAMINE 50MG/ML VIAL IV PRN ×2 (00:29→23:02)
[2019-09-27] MEDS: DEXT 5%/0.45% NACL KCL 20MEQ/L 1,000 ML IV SCH ×3 (03:02→22:52)
[2019-09-27] MEDS: SODIUM CHLORIDE 0.9% INJ 3ML FLUSH IVF SCH ×3 (06:05→22:14)
[2019-09-27 08:02] LABS: EOSINOPHILS % 4.4 % (0.0-5.0); HEMATOCRIT. 39.6 % (42.0-52.0); HEMOGLOBIN. 13.6 g/dL (14.0-18.0); LYMPHOCYTES % 20.1 % (20.0-50.0); MEAN CORPUSCULAR HEMOGLOBIN 30.3 pg (28.0-32.0); MEAN CORPUSCULAR VOLUME 88.6 fL (80.0-94.0); MEAN PLATELET VOLUME 8.1 fl (7.4-10.4); MONOCYTES % 9.5 % (2.0-8.0); PLATELET 488 x1000/uL (130-400); RED BLOOD CELL COUNT 4.47 mill/uL (4.7-6.1); RED CELL DISTRIBUTION WIDTH 13.9 % (11.6-14.6)
[2019-09-27] MEDS: PANTOPRAZOLE SODIUM 40 MG/VIAL IV SCH (08:10)
[2019-09-27] MEDS: ENOXAPARIN 40MG/0.4ML SYR SUBCUT SCH (08:10)
[2019-09-27 08:13] LABS: CHLORIDE 102 mEq/L (98-107)
[2019-09-28] VITALS (12 sets, daily range): BP systolic 93–120; BP diastolic 63–82
[2019-09-28] MEDS: DIPHENHYDRAMINE 50MG/ML VIAL IV PRN ×2 (03:45→22:20)
[2019-09-28] MEDS: SODIUM CHLORIDE 0.9% INJ 3ML FLUSH IVF SCH ×3 (06:00→22:00)
[2019-09-28] MEDS: PANTOPRAZOLE SODIUM 40 MG/VIAL IV SCH (10:25)
[2019-09-28] MEDS: ENOXAPARIN 40MG/0.4ML SYR SUBCUT SCH (10:26)
[2019-09-28] MEDS: DEXT 5%/0.45% NACL KCL 20MEQ/L 1,000 ML IV SCH ×2 (10:26→19:00)
[2019-09-29] VITALS (12 sets, daily range): BP systolic 104–115; BP diastolic 59–90
[2019-09-29] MEDS: DEXT 5%/0.45% NACL KCL 20MEQ/L 1,000 ML IV SCH ×2 (05:00→17:02)
[2019-09-29] MEDS: SODIUM CHLORIDE 0.9% INJ 3ML FLUSH IVF SCH ×3 (05:02→22:00)
[2019-09-29] MEDS: PANTOPRAZOLE SODIUM 40 MG/VIAL IV SCH (09:03)
[2019-09-29] MEDS: ENOXAPARIN 40MG/0.4ML SYR SUBCUT SCH (09:04)
[2019-09-29] MEDS ORDERED: EZ-HD SUSPENSION(BARIUM SULFATE 340GM) PO ONE (11:10)
[2019-09-29] MEDS ORDERED: BARIUM SULFATE 176 GM SUSP.RECON ONE (11:10)
[2019-09-30] VITALS (12 sets, daily range): BP systolic 91–132; BP diastolic 22–86
[2019-09-30] MEDS: DIPHENHYDRAMINE 50MG/ML VIAL IV PRN (00:11)
[2019-09-30] MEDS: DEXT 5%/0.45% NACL KCL 20MEQ/L 1,000 ML IV SCH ×3 (01:00→20:48)
[2019-09-30] MEDS: SODIUM CHLORIDE 0.9% INJ 3ML FLUSH IVF SCH ×3 (05:11→22:00)
[2019-09-30] MEDS ORDERED: DIATR MEGLU/DIATRIZOATE SOLN 30ML ONE ×2 (08:57→09:39)
[2019-09-30] MEDS: PANTOPRAZOLE SODIUM 40 MG/VIAL IV SCH (09:00)
[2019-09-30] MEDS: ENOXAPARIN 40MG/0.4ML SYR SUBCUT SCH (09:00)
[2019-09-30] MEDS ORDERED: DIATR MEGLU/DIATRIZOATE SOLN 120ML ONE (09:39)
[2019-09-30] MEDS ORDERED: DEXTROSE 50% WATER 50ML SYRINGE IV PRN (19:45)
[2019-09-30] MEDS: BLOOD SUGAR DIAGNOSTIC STRIP TEST SCH (22:00)
[2019-10-01] VITALS (12 sets, daily range): BP systolic 91–112; BP diastolic 32–77
[2019-10-01] MEDS: DIPHENHYDRAMINE 50MG/ML VIAL IV PRN ×2 (00:12→23:49)
[2019-10-01] MEDS: SODIUM CHLORIDE 0.9% INJ 3ML FLUSH IVF SCH ×3 (06:00→21:13)
[2019-10-01] MEDS: BLOOD SUGAR DIAGNOSTIC STRIP TEST SCH ×3 (06:00→21:13)
[2019-10-01 06:56] LABS: CHLORIDE 102 mEq/L (98-107)
[2019-10-01 06:57] LABS: INR 1.2; PARTIAL THROMBOPLASTIN TIME 31.9 sec (23.4-31.0); PROTHROMBIN TIME 12.2 sec (9.6-11.0)
[2019-10-01 07:12] LABS: HEMATOCRIT. 41.5 % (42.0-52.0); HEMOGLOBIN. 14.2 g/dL (14.0-18.0); MEAN CORPUSCULAR VOLUME 87.6 fL (80.0-94.0); MEAN PLATELET VOLUME 8.4 fl (7.4-10.4); PLATELET 482 x1000/uL (130-400); RED BLOOD CELL COUNT 4.74 mill/uL (4.7-6.1); RED CELL DISTRIBUTION WIDTH 13.6 % (11.6-14.6)
[2019-10-01] MEDS: DEXT 5%/0.45% NACL KCL 20MEQ/L 1,000 ML IV SCH ×2 (07:46→17:00)
[2019-10-01] MEDS: ENOXAPARIN 40MG/0.4ML SYR SUBCUT SCH (07:52)
[2019-10-01] MEDS: PANTOPRAZOLE SODIUM 40 MG/VIAL IV SCH (07:52)
[2019-10-01 13:01] LABS: PLATELET ESTIMATE INCREASED
[2019-10-01] MEDS ORDERED: PROPOFOL 200MG/20ML VIAL IV ONE ×2 (14:19→14:41)
[2019-10-01] MEDS ORDERED: MIDAZOLAM HCL 2 MG/2 ML VIAL ONE (14:19)
[2019-10-01] MEDS ORDERED: LIDOCAINE HCL/PF 1% 10 MG/ML 5ML VIAL ONE (14:20)
[2019-10-01] MEDS ORDERED: ONDANSETRON HCL 4MG/2ML INJ IV PRN (15:15)
[2019-10-02] VITALS (12 sets, daily range): BP systolic 92–143; BP diastolic 53–85
[2019-10-02] MEDS: DEXT 5%/0.45% NACL KCL 20MEQ/L 1,000 ML IV SCH ×3 (03:00→22:47)
[2019-10-02] MEDS: SODIUM CHLORIDE 0.9% INJ 3ML FLUSH IVF SCH ×3 (05:21→22:47)
[2019-10-02] MEDS: BLOOD SUGAR DIAGNOSTIC STRIP TEST SCH ×3 (05:39→22:45)
[2019-10-02] MEDS: DOCUSATE SODIUM 100MG CAPSULE PO PRN (08:42)
[2019-10-02] MEDS: ENOXAPARIN 40MG/0.4ML SYR SUBCUT SCH (08:42)
[2019-10-02] MEDS: PANTOPRAZOLE SODIUM 40 MG/VIAL IV SCH (08:42)
[2019-10-03] VITALS (12 sets, daily range): BP systolic 89–130; BP diastolic 53–91
[2019-10-03] MEDS: DIPHENHYDRAMINE 50MG/ML VIAL IV PRN (03:33)
[2019-10-03] MEDS: BLOOD SUGAR DIAGNOSTIC STRIP TEST SCH ×3 (05:44→22:00)
[2019-10-03] MEDS: SODIUM CHLORIDE 0.9% INJ 3ML FLUSH IVF SCH ×3 (05:44→20:26)
[2019-10-03] MEDS: ENOXAPARIN 40MG/0.4ML SYR SUBCUT SCH (08:50)
[2019-10-03] MEDS: PANTOPRAZOLE SODIUM 40 MG/VIAL IV SCH (08:50)
[2019-10-03] MEDS: DEXT 5%/0.45% NACL KCL 20MEQ/L 1,000 ML IV SCH ×2 (09:31→18:34)
[2019-10-04] VITALS (10 sets, daily range): BP systolic 83–115; BP diastolic 51–76
[2019-10-04] MEDS: DIPHENHYDRAMINE 50MG/ML VIAL IV PRN (01:17)
[2019-10-04] MEDS: DEXT 5%/0.45% NACL KCL 20MEQ/L 1,000 ML IV SCH ×2 (05:24→18:28)
[2019-10-04] MEDS: BLOOD SUGAR DIAGNOSTIC STRIP TEST SCH ×3 (05:24→21:38)
[2019-10-04] MEDS: SODIUM CHLORIDE 0.9% INJ 3ML FLUSH IVF SCH ×3 (05:24→22:07)
[2019-10-04] MEDS: ENOXAPARIN 40MG/0.4ML SYR SUBCUT SCH (08:21)
[2019-10-04] MEDS: PANTOPRAZOLE SODIUM 40 MG/VIAL IV SCH (08:21)
[2019-10-05] VITALS (12 sets, daily range): BP systolic 98–132; BP diastolic 57–100
[2019-10-05] MEDS: DEXT 5%/0.45% NACL KCL 20MEQ/L 1,000 ML IV SCH ×2 (01:34→13:42)
[2019-10-05] MEDS: DIPHENHYDRAMINE 50MG/ML VIAL IV PRN (02:31)
[2019-10-05] MEDS: BLOOD SUGAR DIAGNOSTIC STRIP TEST SCH ×3 (06:27→21:07)
[2019-10-05] MEDS: SODIUM CHLORIDE 0.9% INJ 3ML FLUSH IVF SCH ×3 (06:27→21:07)
[2019-10-05] MEDS: PANTOPRAZOLE SODIUM 40 MG/VIAL IV SCH (09:40)
[2019-10-05] MEDS: ENOXAPARIN 40MG/0.4ML SYR SUBCUT SCH (09:41)
[2019-10-06] VITALS (12 sets, daily range): BP systolic 85–125; BP diastolic 28–79
[2019-10-06] MEDS: DEXT 5%/0.45% NACL KCL 20MEQ/L 1,000 ML IV SCH ×3 (00:38→17:00)
[2019-10-06] MEDS: DIPHENHYDRAMINE 50MG/ML VIAL IV PRN (02:41)
[2019-10-06] MEDS: SODIUM CHLORIDE 0.9% INJ 3ML FLUSH IVF SCH ×3 (06:18→21:08)
[2019-10-06] MEDS: BLOOD SUGAR DIAGNOSTIC STRIP TEST SCH ×3 (06:19→21:08)
[2019-10-06] MEDS: PANTOPRAZOLE SODIUM 40 MG/VIAL IV SCH (08:26)
[2019-10-06] MEDS: ENOXAPARIN 40MG/0.4ML SYR SUBCUT SCH (08:26)
[2019-10-07] VITALS (10 sets, daily range): BP systolic 91–131; BP diastolic 65–88
[2019-10-07] MEDS: DEXT 5%/0.45% NACL KCL 20MEQ/L 1,000 ML IV SCH ×2 (02:13→13:40)
[2019-10-07] MEDS: DIPHENHYDRAMINE 50MG/ML VIAL IV PRN ×2 (02:55→23:00)
[2019-10-07] MEDS: SODIUM CHLORIDE 0.9% INJ 3ML FLUSH IVF SCH ×4 (06:46→22:48)
[2019-10-07] MEDS: BLOOD SUGAR DIAGNOSTIC STRIP TEST SCH ×3 (06:47→22:48)
[2019-10-07 07:27] LABS: CHLORIDE 102 mEq/L (98-107)
[2019-10-07] MEDS: PANTOPRAZOLE SODIUM 40 MG/VIAL IV SCH (08:18)
[2019-10-07] MEDS: ENOXAPARIN 40MG/0.4ML SYR SUBCUT SCH (08:18)
[2019-10-08] VITALS: BP 105/77
[2019-10-08] MEDS: DEXT 5%/0.45% NACL KCL 20MEQ/L 1,000 ML IV SCH ×3 (00:12→23:30)
[2019-10-08 04:00] VITALS: BP 99/63
[2019-10-08 08:00] VITALS: BP 104/70
[2019-10-08] MEDS: PANTOPRAZOLE SODIUM 40 MG/VIAL IV SCH (09:22)
[2019-10-08] MEDS: ENOXAPARIN 40MG/0.4ML SYR SUBCUT SCH (09:23)
[2019-10-08 12:00] VITALS: BP 92/57
[2019-10-08] MEDS: BLOOD SUGAR DIAGNOSTIC STRIP TEST SCH ×2 (14:00→22:00)
[2019-10-08] MEDS: SODIUM CHLORIDE 0.9% INJ 3ML FLUSH IVF SCH (14:00)
[2019-10-08] MEDS ORDERED: HYDRALAZINE 10 MG in SODIUM CHLORIDE 0.9% 49.5 ML IV PRN (15:45)
[2019-10-08 16:00] VITALS: BP 109/71
[2019-10-08 20:00] VITALS: BP 114/72
[2019-10-09] VITALS: BP 112/76
[2019-10-09] MEDS: DIPHENHYDRAMINE 50MG/ML VIAL IV PRN (02:59)
[2019-10-09 04:00] VITALS: BP 110/78
[2019-10-09] MEDS: SODIUM CHLORIDE 0.9% INJ 3ML FLUSH IVF SCH ×3 (06:00→22:00)
[2019-10-09] MEDS: BLOOD SUGAR DIAGNOSTIC STRIP TEST SCH ×3 (06:06→22:00)
[2019-10-09 08:00] VITALS: BP 107/76
[2019-10-09] MEDS: PANTOPRAZOLE SODIUM 40 MG/VIAL IV SCH (10:02)
[2019-10-09] MEDS: ENOXAPARIN 40MG/0.4ML SYR SUBCUT SCH (10:03)
[2019-10-09 12:00] VITALS: BP 117/76
[2019-10-09] MEDS: DEXT 5%/0.45% NACL KCL 20MEQ/L 1,000 ML IV SCH (14:22)
[2019-10-09 16:00] VITALS: BP 111/66
[2019-10-09 20:00] VITALS: BP 110/73
[2019-10-10 00:28] VITALS: BP 121/87
[2019-10-10 04:00] VITALS: BP 104/71
[2019-10-10 05:44] LABS: CHLORIDE 95 mEq/L (98-107)
[2019-10-10] MEDS: BLOOD SUGAR DIAGNOSTIC STRIP TEST SCH ×3 (06:38→22:00)
[2019-10-10 07:47] LABS: BASOPHILS % 0.9 % (0.0-2.0); EOSINOPHILS % 2.2 % (0.0-5.0); HEMATOCRIT. 40.6 % (42.0-52.0); HEMOGLOBIN. 13.6 g/dL (14.0-18.0); LYMPHOCYTES % 19.6 % (20.0-50.0); MEAN CORPUSCULAR HEMOGLOBIN 29.5 pg (28.0-32.0); MEAN CORPUSCULAR VOLUME 88.2 fL (80.0-94.0); MEAN PLATELET VOLUME 9.6 fl (7.4-10.4); MONOCYTES % 10.4 % (2.0-8.0); NEUTROPHILS % 66.9 % (40.0-76.0); PLATELET 308 x1000/uL (130-400); RED CELL DISTRIBUTION WIDTH 13.7 % (11.6-14.6)
[2019-10-10] MEDS: DOCUSATE SODIUM 100MG CAPSULE PO PRN (09:37)
[2019-10-10] MEDS: ENOXAPARIN 40MG/0.4ML SYR SUBCUT SCH (09:37)
[2019-10-10] MEDS: PANTOPRAZOLE SODIUM 40 MG/VIAL IV SCH (09:38)
[2019-10-10] MEDS: DEXT 5%/0.45% NACL KCL 20MEQ/L 1,000 ML IV SCH (18:54)
[2019-10-10 20:00] VITALS: BP 99/69
[2019-10-11] VITALS: BP 103/71
[2019-10-11] MEDS ORDERED: DIPHENHYDRAMINE 50MG/ML VIAL IV PRN (00:45)
[2019-10-11] MEDS ORDERED: IPRATROPIUM/ALBUTEROL 0.5-3(2.5)MG/3ML NEB HHN PRN ×2 (00:45)
[2019-10-11] MEDS ORDERED: ONDANSETRON HCL 4MG/2ML INJ IV PRN (00:45)
[2019-10-11] MEDS ORDERED: CLONIDINE 0.1MG TABLET PO PRN (00:45)
[2019-10-11] MEDS ORDERED: DOCUSATE SODIUM 100MG CAPSULE PO PRN (00:45)
[2019-10-11] MEDS ORDERED: GUAIFENESIN 200MG/10ML SUGAR FREE UDC PO PRN (00:45)
[2019-10-11] MEDS ORDERED: MAGNESIUM/ALUMINUM HYDROXIDE/SIMETHICONE 30ML UDC PO PRN (00:45)
[2019-10-11 04:00] VITALS: BP 114/75
[2019-10-11] MEDS: BLOOD SUGAR DIAGNOSTIC STRIP TEST SCH ×3 (06:00→22:23)
[2019-10-11] MEDS: SODIUM CHLORIDE 0.9% INJ 3ML FLUSH IVF SCH ×2 (06:00→14:00)
[2019-10-11] MEDS: PANTOPRAZOLE SODIUM 40 MG/VIAL IV SCH (08:58)
[2019-10-11] MEDS: ENOXAPARIN 40MG/0.4ML SYR SUBCUT SCH (08:58)
[2019-10-11 20:00] VITALS: BP 108/70
[2019-10-12] VITALS: BP 123/84
[2019-10-12 04:00] VITALS: BP 107/81
[2019-10-12] MEDS: ACETAMINOPHEN 650MG/20.3ML UDC PO PRN (04:16)
[2019-10-12] MEDS: BLOOD SUGAR DIAGNOSTIC STRIP TEST SCH ×3 (05:54→22:00)
[2019-10-12 08:00] VITALS: BP 111/70
[2019-10-12] MEDS: DEXT 5%/0.45% NACL KCL 20MEQ/L 1,000 ML IV SCH (08:00)
[2019-10-12] MEDS: ENOXAPARIN 40MG/0.4ML SYR SUBCUT SCH (08:32)
[2019-10-12 12:00] VITALS: BP 102/75
[2019-10-12 16:00] VITALS: BP 103/69
[2019-10-12] MEDS ORDERED: FUROSEMIDE 40MG/4ML VIAL IVP SCH (17:15)
[2019-10-12] MEDS ORDERED: METHYLPREDNISOLONE SOD SUCC 125 MG/2 ML VIAL IV SCH (17:15)
[2019-10-12 18:20] LABS: BASOPHILS % 1.1 % (0.0-2.0); EOSINOPHILS % 4.5 % (0.0-5.0); HEMATOCRIT. 45.7 % (42.0-52.0); HEMOGLOBIN. 15.2 g/dL (14.0-18.0); LYMPHOCYTES % 24.4 % (20.0-50.0); MEAN CORPUSCULAR HEMOGLOBIN 29.5 pg (28.0-32.0); MEAN CORPUSCULAR VOLUME 88.8 fL (80.0-94.0); MEAN PLATELET VOLUME 8.8 fl (7.4-10.4); MONOCYTES % 12.1 % (2.0-8.0); NEUTROPHILS % 57.9 % (40.0-76.0); PLATELET 383 x1000/uL (130-400); RED BLOOD CELL COUNT 5.15 mill/uL (4.7-6.1); RED CELL DISTRIBUTION WIDTH 13.8 % (11.6-14.6)
[2019-10-12 18:25] LABS: CHLORIDE 95 mEq/L (98-107)
[2019-10-12] MEDS ORDERED: MORPHINE SULFATE 10 MG/ML CPJ IV NR (18:30)
[2019-10-12] MEDS ORDERED: MIDAZOLAM HCL 2 MG/2 ML VIAL IV NR (18:30)
[2019-10-12] MEDS ORDERED: LIDOCAINE 1%/EPI 1:100,000 10 ML VIAL IJ NR (18:30)
[2019-10-12] MEDS ORDERED: MORPHINE SULFATE 4 MG/ML CPJ (NOT FOR IM USE) IV NR (19:15)
[2019-10-12 20:00] VITALS: BP 122/80
[2019-10-13] VITALS: BP 119/80
[2019-10-13] MEDS: SODIUM CHLORIDE 0.9% INJ 3ML FLUSH IVF SCH ×4 (00:11→14:00)
[2019-10-13 04:00] VITALS: BP 116/78
[2019-10-13] MEDS: DEXT 5%/0.45% NACL KCL 20MEQ/L 1,000 ML IV SCH ×2 (04:00→14:00)
[2019-10-13] MEDS: MORPHINE SULFATE 2 MG/ML CPJ (NOT FOR IM USE) IV PRN ×4 (04:04→22:52)
[2019-10-13] MEDS: BLOOD SUGAR DIAGNOSTIC STRIP TEST SCH ×3 (06:00→22:00)
[2019-10-13 08:33] VITALS: BP 105/74
[2019-10-13] MEDS: ENOXAPARIN 40MG/0.4ML SYR SUBCUT SCH (09:16)
[2019-10-13] MEDS ORDERED: HYDRALAZINE 20MG/ML VIAL IV PRN (17:15)
[2019-10-13 21:34] VITALS: BP 117/75
[2019-10-14] MEDS: DEXT 5%/0.45% NACL KCL 20MEQ/L 1,000 ML IV SCH ×4 (00:59→20:46)
[2019-10-14 04:00] VITALS: BP 100/63
[2019-10-14 08:00] VITALS: BP 93/62
[2019-10-14] MEDS: MORPHINE SULFATE 2 MG/ML CPJ (NOT FOR IM USE) IV PRN ×2 (08:58→18:03)
[2019-10-14] MEDS: ENOXAPARIN 40MG/0.4ML SYR SUBCUT SCH (08:59)
[2019-10-14 12:00] VITALS: BP 99/75
[2019-10-14] MEDS: SODIUM CHLORIDE 0.9% INJ 3ML FLUSH IVF SCH ×2 (12:41→22:50)
[2019-10-14] MEDS: BLOOD SUGAR DIAGNOSTIC STRIP TEST SCH ×2 (14:00→22:49)
[2019-10-14 16:00] VITALS: BP 97/72
[2019-10-14 20:57] VITALS: BP 96/65
[2019-10-15 00:15] VITALS: BP 95/71
[2019-10-15] MEDS: MORPHINE SULFATE 2 MG/ML CPJ (NOT FOR IM USE) IV PRN ×3 (00:39→23:11)
[2019-10-15 04:22] VITALS: BP 96/65
[2019-10-15] MEDS: SODIUM CHLORIDE 0.9% INJ 3ML FLUSH IVF SCH ×3 (06:00→23:12)
[2019-10-15] MEDS: ENOXAPARIN 40MG/0.4ML SYR SUBCUT SCH (10:28)
[2019-10-15] MEDS: BLOOD SUGAR DIAGNOSTIC STRIP TEST SCH ×2 (14:00→21:37)
[2019-10-15] MEDS: DEXT 5%/0.45% NACL KCL 20MEQ/L 1,000 ML IV SCH ×2 (15:18→16:00)
[2019-10-15 20:46] VITALS: BP 101/61
[2019-10-16] VITALS: BP 104/68
[2019-10-16] MEDS: DEXT 5%/0.45% NACL KCL 20MEQ/L 1,000 ML IV SCH ×3 (01:21→23:47)
[2019-10-16 04:20] VITALS: BP 94/56
[2019-10-16] MEDS: BLOOD SUGAR DIAGNOSTIC STRIP TEST SCH ×3 (05:51→21:34)
[2019-10-16] MEDS: SODIUM CHLORIDE 0.9% INJ 3ML FLUSH IVF SCH ×3 (05:55→21:35)
[2019-10-16 06:57] LABS: BASOPHILS % 1.2 % (0.0-2.0); EOSINOPHILS % 3.3 % (0.0-5.0); HEMOGLOBIN. 12.8 g/dL (14.0-18.0); LYMPHOCYTES % 26.6 % (20.0-50.0); MEAN CORPUSCULAR HEMOGLOBIN 29.8 pg (28.0-32.0); MEAN CORPUSCULAR VOLUME 88.3 fL (80.0-94.0); MEAN PLATELET VOLUME 8.1 fl (7.4-10.4); MONOCYTES % 9.7 % (2.0-8.0); NEUTROPHILS % 59.2 % (40.0-76.0); PLATELET 310 x1000/uL (130-400); RED BLOOD CELL COUNT 4.31 mill/uL (4.7-6.1); RED CELL DISTRIBUTION WIDTH 13.4 % (11.6-14.6)
[2019-10-16 07:02] LABS: CHLORIDE 99 mEq/L (98-107)
[2019-10-16 08:02] VITALS: BP 92/59
[2019-10-16] MEDS: ENOXAPARIN 40MG/0.4ML SYR SUBCUT SCH (09:48)
[2019-10-16 12:01] VITALS: BP 101/72
[2019-10-16 15:37] VITALS: BP 101/63
[2019-10-16] MEDS: NEO/POLYMYX B SULF/DEXAMETH 0.1% OPHTH SUSP 5ML BOTHEYE SCH ×2 (18:05→23:47)
[2019-10-16 20:00] VITALS: BP 100/65
[2019-10-16] MEDS: ZOLPIDEM TARTRATE 5MG TABLET PO PRN (21:34)
[2019-10-17] VITALS (10 sets, daily range): BP systolic 82–102; BP diastolic 59–70
[2019-10-17 05:07] LABS: BASOPHILS % 1.1 % (0.0-2.0); EOSINOPHILS % 3.3 % (0.0-5.0); HEMATOCRIT. 38.9 % (42.0-52.0); LYMPHOCYTES % 23.4 % (20.0-50.0); MEAN CORPUSCULAR HEMOGLOBIN 29.4 pg (28.0-32.0); MEAN CORPUSCULAR VOLUME 87.8 fL (80.0-94.0); MONOCYTES % 9.6 % (2.0-8.0); NEUTROPHILS % 62.6 % (40.0-76.0); PLATELET 360 x1000/uL (130-400); RED BLOOD CELL COUNT 4.43 mill/uL (4.7-6.1); RED CELL DISTRIBUTION WIDTH 13.6 % (11.6-14.6)
[2019-10-17] MEDS: BLOOD SUGAR DIAGNOSTIC STRIP TEST SCH ×3 (05:30→22:30)
[2019-10-17 05:40] LABS: CHLORIDE 100 mEq/L (98-107)
[2019-10-17] MEDS: SODIUM CHLORIDE 0.9% INJ 3ML FLUSH IVF SCH ×3 (05:53→21:30)
[2019-10-17] MEDS: NEO/POLYMYX B SULF/DEXAMETH 0.1% OPHTH SUSP 5ML BOTHEYE SCH ×4 (05:53→23:24)
[2019-10-17] MEDS: DEXT 5%/0.45% NACL KCL 20MEQ/L 1,000 ML IV SCH ×2 (08:05→18:20)
[2019-10-17] MEDS: ENOXAPARIN 40MG/0.4ML SYR SUBCUT SCH (08:06)
[2019-10-17] MEDS ORDERED: ERYTHROMYCIN 250MG TABLET JT SCH (12:15)
[2019-10-17] MEDS: METOCLOPRAMIDE HCL 10MG/2ML VIAL IV SCH ×3 (12:47→23:24)
[2019-10-18] VITALS (11 sets, daily range): BP systolic 87–104; BP diastolic 54–73
[2019-10-18] MEDS: ZOLPIDEM TARTRATE 5MG TABLET PO PRN ×2 (03:33→22:11)
[2019-10-18] MEDS: DEXT 5%/0.45% NACL KCL 20MEQ/L 1,000 ML IV SCH ×3 (04:19→23:58)
[2019-10-18] MEDS: SODIUM CHLORIDE 0.9% INJ 3ML FLUSH IVF SCH ×3 (06:10→21:31)
[2019-10-18] MEDS: METOCLOPRAMIDE HCL 10MG/2ML VIAL IV SCH ×4 (06:10→23:58)
[2019-10-18] MEDS: NEO/POLYMYX B SULF/DEXAMETH 0.1% OPHTH SUSP 5ML BOTHEYE SCH ×4 (06:10→23:59)
[2019-10-18] MEDS: BLOOD SUGAR DIAGNOSTIC STRIP TEST SCH ×3 (06:12→21:40)
[2019-10-18 07:11] LABS: CHLORIDE 101 mEq/L (98-107)
[2019-10-18 07:13] LABS: BASOPHILS % 0.7 % (0.0-2.0); HEMATOCRIT. 40.4 % (42.0-52.0); HEMOGLOBIN. 13.6 g/dL (14.0-18.0); LYMPHOCYTES % 20.6 % (20.0-50.0); MEAN CORPUSCULAR HEMOGLOBIN 29.6 pg (28.0-32.0); MEAN CORPUSCULAR VOLUME 87.5 fL (80.0-94.0); MEAN PLATELET VOLUME 7.5 fl (7.4-10.4); NEUTROPHILS % 67.7 % (40.0-76.0); PLATELET 378 x1000/uL (130-400); RED BLOOD CELL COUNT 4.61 mill/uL (4.7-6.1); RED CELL DISTRIBUTION WIDTH 13.5 % (11.6-14.6)
[2019-10-18] MEDS: ENOXAPARIN 40MG/0.4ML SYR SUBCUT SCH (11:53)
[2019-10-19] VITALS (12 sets, daily range): BP systolic 90–103; BP diastolic 56–68
[2019-10-19] MEDS: SODIUM CHLORIDE 0.9% INJ 3ML FLUSH IVF SCH ×3 (05:17→22:00)
[2019-10-19] MEDS: NEO/POLYMYX B SULF/DEXAMETH 0.1% OPHTH SUSP 5ML BOTHEYE SCH ×3 (05:17→17:06)
[2019-10-19] MEDS: METOCLOPRAMIDE HCL 10MG/2ML VIAL IV SCH ×3 (05:19→17:06)
[2019-10-19] MEDS: BLOOD SUGAR DIAGNOSTIC STRIP TEST SCH ×3 (05:23→22:00)
[2019-10-19] MEDS: DEXT 5%/0.45% NACL KCL 20MEQ/L 1,000 ML IV SCH (11:20)
[2019-10-20] VITALS (35 sets, daily range): BP systolic 89–142; BP diastolic 54–97
[2019-10-20] MEDS: DEXT 5%/0.45% NACL KCL 20MEQ/L 1,000 ML IV SCH
[2019-10-20] MEDS: ERYTHROMYCIN 250MG TABLET JT SCH ×5 (06:00→23:55)
[2019-10-20] MEDS: SODIUM CHLORIDE 0.9% INJ 3ML FLUSH IVF SCH ×3 (06:26→22:04)
[2019-10-20] MEDS: METOCLOPRAMIDE HCL 10MG/2ML VIAL IV SCH ×5 (06:28→23:53)
[2019-10-20] MEDS: NEO/POLYMYX B SULF/DEXAMETH 0.1% OPHTH SUSP 5ML BOTHEYE SCH ×5 (06:28→23:55)
[2019-10-20 06:52] LABS: BASOPHILS % 0.9 % (0.0-2.0); HEMATOCRIT. 37.6 % (42.0-52.0); HEMOGLOBIN. 12.8 g/dL (14.0-18.0); LYMPHOCYTES % 21.6 % (20.0-50.0); MEAN CORPUSCULAR HEMOGLOBIN 29.6 pg (28.0-32.0); MEAN PLATELET VOLUME 7.8 fl (7.4-10.4); MONOCYTES % 7.9 % (2.0-8.0); NEUTROPHILS % 66.6 % (40.0-76.0); PLATELET 343 x1000/uL (130-400); RED BLOOD CELL COUNT 4.33 mill/uL (4.7-6.1); RED CELL DISTRIBUTION WIDTH 13.6 % (11.6-14.6)
[2019-10-20 08:16] LABS: CHLORIDE 103 mEq/L (98-107)
[2019-10-20] MEDS ORDERED: BUPIVACAINE/EPINEPH/PF 0.25%/0.0005 10ML ONE (09:37)
[2019-10-20] MEDS ORDERED: NORMAL SALINE 0.9% 10 ML SYR ONE (09:37)
[2019-10-20] MEDS ORDERED: BUPIVACAINE HCL/PF 0.5% (5MG/ML) 10ML ONE (09:37)
[2019-10-20] MEDS ORDERED: BACITRACIN 15GM TUBE TOP ONE (09:37)
[2019-10-20] MEDS ORDERED: SODIUM CHLORIDE 0.9% 2,000 ML ONE (09:38)
[2019-10-20] MEDS ORDERED: BACITRACIN 50,000 UNITS/VIAL ONE (09:38)
[2019-10-20] MEDS ORDERED: SKIN ADHESIVE 0.7 GM EA TOP ONE (09:43)
[2019-10-20] MEDS ORDERED: TETRACAINE/BENZOCAINE/BUTAMBEN 20 GM SPRAY MM ONE (10:07)
[2019-10-20] MEDS ORDERED: LIDOCAINE HCL 2% JELLY 5ML ONE (10:07)
[2019-10-20] MEDS ORDERED: FENTANYL CITRATE/PF 50MCG/ML 2ML VIAL ONE (10:26)
[2019-10-20] MEDS ORDERED: NEOSTIGMINE METHYLSULFATE 1MG/ML 10 ML VIAL ONE (10:27)
[2019-10-20] MEDS ORDERED: PROPOFOL 200MG/20ML VIAL IV ONE (10:28)
[2019-10-20] MEDS ORDERED: ROCURONIUM BROMIDE 10MG/ML VIAL 5ML IV ONE (10:28)
[2019-10-20] MEDS ORDERED: MIDAZOLAM HCL 2 MG/2 ML VIAL ONE (10:29)
[2019-10-20] MEDS ORDERED: GLYCOPYRROLATE 0.2 MG/ML 2ML VIAL ONE (10:29)
[2019-10-20] MEDS ORDERED: ONDANSETRON HCL 4MG/2ML INJ ONE (10:55)
[2019-10-20] MEDS ORDERED: VANCOMYCIN HCL 1 GM/VIAL ONE (11:04)
[2019-10-20] MEDS ORDERED: HYDROMORPHONE HCL/PF 2MG/ML (OR) ONE (11:07)
[2019-10-20] MEDS ORDERED: DEXT 5%/0.45% NACL 1000ML 1,000 ML IV SCH (12:26)
[2019-10-20] MEDS ORDERED: SODIUM CHLORIDE 0.9% 500 ML IV PRN (12:26)
[2019-10-20] MEDS ORDERED: MAGNESIUM 1 G PREMIX 100 ML IV PRN (12:30)
[2019-10-20] MEDS ORDERED: MAGNESIUM 2 G PREMIX 50 ML IV PRN (12:30)
[2019-10-20] MEDS ORDERED: MAGNESIUM SULFATE 3 GM in DEXT 5% WATER 100 ML IV PRN (12:30)
[2019-10-20] MEDS: BLOOD SUGAR DIAGNOSTIC STRIP TEST SCH ×2 (13:41→22:00)
[2019-10-20 13:46] LABS: BASOPHILS % 0.5 % (0.0-2.0); EOSINOPHILS % 1.4 % (0.0-5.0); HEMATOCRIT. 37.8 % (42.0-52.0); HEMOGLOBIN. 12.5 g/dL (14.0-18.0); LYMPHOCYTES % 11.3 % (20.0-50.0); MEAN CORPUSCULAR VOLUME 87.8 fL (80.0-94.0); MEAN PLATELET VOLUME 7.7 fl (7.4-10.4); MONOCYTES % 4.7 % (2.0-8.0); NEUTROPHILS % 82.1 % (40.0-76.0); PLATELET 347 x1000/uL (130-400); RED BLOOD CELL COUNT 4.31 mill/uL (4.7-6.1); RED CELL DISTRIBUTION WIDTH 13.4 % (11.6-14.6)
[2019-10-20 14:24] LABS: CHLORIDE 105 mEq/L (98-107)
[2019-10-20] MEDS ORDERED: KCL 10MEQ/50ML PREMIX 150 ML IV PRN (14:30)
[2019-10-20] MEDS ORDERED: KCL 10MEQ/50ML PREMIX 200 ML IV PRN (14:30)
[2019-10-20] MEDS ORDERED: KCL 10MEQ/50ML PREMIX 100 ML IV PRN (14:30)
[2019-10-20] MEDS: CEFAZOLIN 1000MG PREMIX 50 ML IV SCH ×2 (14:47→21:16)
[2019-10-20] MEDS: IPRATROPIUM/ALBUTEROL 0.5-3(2.5)MG/3ML NEB HHN SCH ×2 (15:45→21:20)
[2019-10-20] MEDS: DOCUSATE SODIUM 100MG CAPSULE PO SCH (17:09)
[2019-10-20] MEDS ORDERED: OXYCODONE HCL/ACETAMINOPHEN 5/325MG TABLET PO PRN (18:30)
[2019-10-20] MEDS: KETOROLAC 15MG/ML VIAL IV SCH ×2 (19:42→23:54)
[2019-10-20] MEDS ORDERED: MAGNESIUM 4 G PREMIX 100 ML IV NR (21:00)
[2019-10-20] MEDS: OXYCODONE HCL/ACETAMINOPHEN 5/325MG TABLET PO PRN (22:08)
[2019-10-21] VITALS (45 sets, daily range): BP systolic 81–152; BP diastolic 37–150
[2019-10-21] MEDS: IPRATROPIUM/ALBUTEROL 0.5-3(2.5)MG/3ML NEB HHN SCH ×7 (01:00→20:30)
[2019-10-21 05:46] LABS: HEMATOCRIT. 36.6 % (42.0-52.0); HEMOGLOBIN. 12.2 g/dL (14.0-18.0); MEAN CORPUSCULAR HEMOGLOBIN 29.2 pg (28.0-32.0); MEAN CORPUSCULAR VOLUME 87.9 fL (80.0-94.0); MEAN PLATELET VOLUME 7.5 fl (7.4-10.4); PLATELET 308 x1000/uL (130-400); RED BLOOD CELL COUNT 4.16 mill/uL (4.7-6.1); RED CELL DISTRIBUTION WIDTH 13.6 % (11.6-14.6)
[2019-10-21 05:53] LABS: CHLORIDE 99 mEq/L (98-107)
[2019-10-21] MEDS: MORPHINE SULFATE 2 MG/ML CPJ (NOT FOR IM USE) IV PRN ×4 (06:03→21:08)
[2019-10-21] MEDS: METOCLOPRAMIDE HCL 10MG/2ML VIAL IV SCH ×4 (06:04→23:50)
[2019-10-21] MEDS: ERYTHROMYCIN 250MG TABLET JT SCH ×4 (06:04→23:50)
[2019-10-21] MEDS: KETOROLAC 15MG/ML VIAL IV SCH (06:04)
[2019-10-21] MEDS: CEFAZOLIN 1000MG PREMIX 50 ML IV SCH (06:06)
[2019-10-21] MEDS: BLOOD SUGAR DIAGNOSTIC STRIP TEST SCH ×3 (06:45→21:51)
[2019-10-21] MEDS: NEO/POLYMYX B SULF/DEXAMETH 0.1% OPHTH SUSP 5ML BOTHEYE SCH ×4 (06:47→23:50)
[2019-10-21] MEDS: SODIUM CHLORIDE 0.9% INJ 3ML FLUSH IVF SCH ×3 (06:47→21:51)
[2019-10-21] MEDS ORDERED: FUROSEMIDE 40MG/4ML VIAL IVP NR (07:30)
[2019-10-21 08:24] LABS: PLATELET ESTIMATE NORMAL
[2019-10-21 08:27] LABS: BG CARBOXYHEMOGLOBIN 0.3 % (0.5-1.5); BG DEOXYHEMOGLOBIN 3.2 % (0.0-5.0); BG METHEMOGLOBIN 0.3 % (0.0-1.5); BG OXYGEN SATURATION 96.8 % (92.0-98.5); BG OXYHEMOGLOBIN 96.2 % (94.0-97.0); BG PCO2 36.6 mmHg (35.0-45.0); BG PH 7.434 (7.350-7.450); BG PO2 86.1 mmHg (75.0-100.0); BG SAMPLE SITE RIGHT RADIAL; BG TOTAL HEMOGLOBIN 12.9 g/dL (12.0-18.0); BG VENT MODE NASAL CANNULA
[2019-10-21] MEDS: ASPIRIN 81MG EC TABLET PO SCH (09:29)
[2019-10-21] MEDS: DOCUSATE SODIUM 100MG CAPSULE PO SCH ×2 (09:29→17:04)
[2019-10-21] MEDS: ONDANSETRON HCL 4MG/2ML INJ IV PRN ×2 (10:51→20:14)
[2019-10-21] MEDS: OXYCODONE HCL/ACETAMINOPHEN 5/325MG TABLET PO PRN (14:56)
[2019-10-22] VITALS (11 sets, daily range): BP systolic 85–111; BP diastolic 58–75
[2019-10-22] MEDS: IPRATROPIUM/ALBUTEROL 0.5-3(2.5)MG/3ML NEB HHN SCH ×5 (00:35→20:17)
[2019-10-22] MEDS: ONDANSETRON HCL 4MG/2ML INJ IV PRN (02:11)
[2019-10-22] MEDS: MORPHINE SULFATE 2 MG/ML CPJ (NOT FOR IM USE) IV PRN ×2 (02:13→08:39)
[2019-10-22] MEDS: METOCLOPRAMIDE HCL 10MG/2ML VIAL IV SCH ×4 (05:08→23:31)
[2019-10-22] MEDS: ERYTHROMYCIN 250MG TABLET JT SCH ×4 (05:09→23:28)
[2019-10-22] MEDS: SODIUM CHLORIDE 0.9% INJ 3ML FLUSH IVF SCH ×3 (05:09→22:00)
[2019-10-22] MEDS: NEO/POLYMYX B SULF/DEXAMETH 0.1% OPHTH SUSP 5ML BOTHEYE SCH ×4 (05:09→23:29)
[2019-10-22] MEDS: BLOOD SUGAR DIAGNOSTIC STRIP TEST SCH ×3 (05:49→22:16)
[2019-10-22 06:47] LABS: CHLORIDE 94 mEq/L (98-107)
[2019-10-22 06:59] LABS: HEMATOCRIT. 38.6 % (42.0-52.0); HEMOGLOBIN. 13.1 g/dL (14.0-18.0); MEAN CORPUSCULAR HEMOGLOBIN 29.4 pg (28.0-32.0); MEAN CORPUSCULAR VOLUME 86.7 fL (80.0-94.0); MEAN PLATELET VOLUME 8.1 fl (7.4-10.4); PLATELET 354 x1000/uL (130-400); RED BLOOD CELL COUNT 4.45 mill/uL (4.7-6.1); RED CELL DISTRIBUTION WIDTH 13.7 % (11.6-14.6)
[2019-10-22] MEDS: ASPIRIN 81MG EC TABLET PO SCH (08:26)
[2019-10-22] MEDS: DOCUSATE SODIUM 100MG CAPSULE PO SCH ×2 (08:26→17:55)
[2019-10-22] MEDS ORDERED: FUROSEMIDE 40MG/4ML VIAL IVP NR (10:00)
[2019-10-22 10:40] LABS: PLATELET ESTIMATE NORMAL
[2019-10-22] MEDS ORDERED: MAGNESIUM 4 G PREMIX 100 ML IV NR (12:00)
[2019-10-22 12:16] LABS: CHLORIDE 91 mEq/L (98-107)
[2019-10-22] MEDS ORDERED: POTASSIUM CHLORIDE 20MEQ/PACKET PO NR ×2 (13:15→22:00)
[2019-10-22] MEDS ORDERED: POTASSIUM CHLORIDE INJ 60 MEQ in DEXT 5% WATER 500 ML IV NR (15:30)
[2019-10-22] MEDS ORDERED: KCL 20MEQ/100ML PREMIX 100 ML IV NR (22:00)
[2019-10-23] VITALS (7 sets, daily range): BP systolic 93–124; BP diastolic 52–99
[2019-10-23] MEDS: IPRATROPIUM/ALBUTEROL 0.5-3(2.5)MG/3ML NEB HHN SCH ×6 (00:19→20:11)
[2019-10-23] MEDS: ERYTHROMYCIN 250MG TABLET JT SCH ×3 (05:29→18:22)
[2019-10-23] MEDS: METOCLOPRAMIDE HCL 10MG/2ML VIAL IV SCH ×3 (05:29→18:00)
[2019-10-23] MEDS: SODIUM CHLORIDE 0.9% INJ 3ML FLUSH IVF SCH ×3 (05:30→22:00)
[2019-10-23] MEDS: NEO/POLYMYX B SULF/DEXAMETH 0.1% OPHTH SUSP 5ML BOTHEYE SCH ×3 (05:30→18:11)
[2019-10-23] MEDS: BLOOD SUGAR DIAGNOSTIC STRIP TEST SCH ×3 (05:31→22:39)
[2019-10-23 06:31] LABS: CHLORIDE 92 mEq/L (98-107)
[2019-10-23 06:51] LABS: BASOPHILS % 0.5 % (0.0-2.0); EOSINOPHILS % 2.9 % (0.0-5.0); HEMATOCRIT. 36.8 % (42.0-52.0); HEMOGLOBIN. 12.4 g/dL (14.0-18.0); LYMPHOCYTES % 12.7 % (20.0-50.0); MEAN CORPUSCULAR HEMOGLOBIN 29.2 pg (28.0-32.0); MEAN CORPUSCULAR VOLUME 86.5 fL (80.0-94.0); MEAN PLATELET VOLUME 8.2 fl (7.4-10.4); MONOCYTES % 7.7 % (2.0-8.0); NEUTROPHILS % 76.2 % (40.0-76.0); PLATELET 345 x1000/uL (130-400); RED BLOOD CELL COUNT 4.25 mill/uL (4.7-6.1); RED CELL DISTRIBUTION WIDTH 13.7 % (11.6-14.6)
[2019-10-23] MEDS ORDERED: MAGNESIUM 4 G PREMIX 100 ML IV SCH (08:00)
[2019-10-23] MEDS ORDERED: KCL 20MEQ/100ML PREMIX 100 ML IV SCH (08:00)
[2019-10-23] MEDS: DOCUSATE SODIUM 100MG CAPSULE PO SCH ×2 (08:15→18:00)
[2019-10-23] MEDS: ASPIRIN 81MG EC TABLET PO SCH (08:15)
[2019-10-23] MEDS ORDERED: POTASSIUM CHLORIDE 20MEQ TABLET SR PO SCH (10:15)
[2019-10-23] MEDS ORDERED: ZOLPIDEM TARTRATE 5MG TABLET PO PRN (21:00)
[2019-10-24] VITALS: BP 101/66
[2019-10-24] MEDS: METOCLOPRAMIDE HCL 10MG/2ML VIAL IV SCH ×4 (00:02→17:54)
[2019-10-24] MEDS: ERYTHROMYCIN 250MG TABLET JT SCH ×4 (00:09→17:54)
[2019-10-24] MEDS: IPRATROPIUM/ALBUTEROL 0.5-3(2.5)MG/3ML NEB HHN SCH ×6 (00:16→21:45)
[2019-10-24 04:00] VITALS: BP 100/67
[2019-10-24] MEDS: BLOOD SUGAR DIAGNOSTIC STRIP TEST SCH ×3 (05:40→22:10)
[2019-10-24] MEDS: SODIUM CHLORIDE 0.9% INJ 3ML FLUSH IVF SCH ×3 (06:12→21:48)
[2019-10-24 08:00] VITALS: BP 104/71
[2019-10-24] MEDS: DOCUSATE SODIUM 100MG CAPSULE PO SCH ×2 (08:25→17:54)
[2019-10-24] MEDS: ASPIRIN 81MG EC TABLET PO SCH (08:26)
[2019-10-24] MEDS: OXYCODONE HCL/ACETAMINOPHEN 5/325MG TABLET PO PRN ×2 (08:26→22:36)
[2019-10-24 12:00] VITALS: BP 102/70
[2019-10-24 16:00] VITALS: BP 97/67
[2019-10-24 20:00] VITALS: BP 103/63
[2019-10-25] VITALS: BP 111/80
[2019-10-25] MEDS: IPRATROPIUM/ALBUTEROL 0.5-3(2.5)MG/3ML NEB HHN SCH ×4 (00:20→12:00)
[2019-10-25] MEDS: METOCLOPRAMIDE HCL 10MG/2ML VIAL IV SCH ×3 (01:25→11:57)
[2019-10-25] MEDS ORDERED: ERYTHROMYCIN 250MG TABLET PO SCH (01:30)
[2019-10-25] MEDS: ERYTHROMYCIN 250MG TABLET JT SCH (01:44)
[2019-10-25 04:00] VITALS: BP 100/66
[2019-10-25] MEDS: BLOOD SUGAR DIAGNOSTIC STRIP TEST SCH ×2 (06:44→14:00)
[2019-10-25] MEDS: SODIUM CHLORIDE 0.9% INJ 3ML FLUSH IVF SCH (06:44)
[2019-10-25 08:00] VITALS: BP 99/64
[2019-10-25] MEDS: ASPIRIN 81MG EC TABLET PO SCH (08:48)
[2019-10-25] MEDS: DOCUSATE SODIUM 100MG CAPSULE PO SCH (08:48)
[2019-10-25 13:43] VITALS: BP 99/68
[2019-10-25] MEDS: ACETAMINOPHEN 650MG/20.3ML UDC PO PRN (14:45)
== END 2019-10-25 16:15 | disposition home or self-care (01) | DRG 710 ==
LOC: ER 22:55 → MICUSO 09-12 02:11 → ENRESERV 09-12 07:39 → MICUNO 09-13 06:00 → 3WST 09-13 17:01 → 6EST 10-07 16:56 → 6WST 10-12 19:11 → 3WST 10-17 16:37 → CVICU 10-20 11:00 → 5EST 10-21 22:33 → 8WST 10-23 16:24
PROVIDERS: ADMIT Internal Medicine; ATTEND Internal Medicine
PROC: 0DB70ZZ Excision of Stomach, Pylorus, Open Approach (ICD-10-PCS; principal; 2019-09-12)
PROC: 0D160ZA Bypass Stomach to Jejunum, Open Approach (ICD-10-PCS; 2019-09-12)
PROC: 0DB70ZZ Excision of Stomach, Pylorus, Open Approach (ICD-10-PCS; 2019-09-12)
PROC: 0W9930Z Drainage of Right Pleural Cavity with Drainage Device, Percutaneous Approach (ICD-10-PCS; 2019-09-12)
PROC: 0DJ08ZZ Inspection of Upper Intestinal Tract, Via Natural or Artificial Opening Endoscopic (ICD-10-PCS; 2019-10-01)
PROC: 3E0L3GC Introduction of Other Therapeutic Substance into Pleural Cavity, Percutaneous Approach (ICD-10-PCS; 2019-10-20)
DX: A41.9 Sepsis, unspecified organism (principal); K26.5 Chronic or unspecified duodenal ulcer with perforation; J96.00 Acute respiratory failure, unspecified whether with hypoxia or hypercapnia; E87.1 Hypo-osmolality and hyponatremia; F15.10 Other stimulant abuse, uncomplicated; K21.9 Gastro-esophageal reflux disease without esophagitis; F12.90 Cannabis use, unspecified, uncomplicated; G93.41 Metabolic encephalopathy; J69.0 Pneumonitis due to inhalation of food and vomit; K56.7 Ileus, unspecified; R00.0 Tachycardia, unspecified; K65.0 Generalized (acute) peritonitis; D47.3 Essential (hemorrhagic) thrombocythemia; Z20.828 Contact with and (suspected) exposure to other viral communicable diseases; D64.9 Anemia, unspecified; G47.00 Insomnia, unspecified; K29.70 Gastritis, unspecified, without bleeding; K31.89 Other diseases of stomach and duodenum; T79.7XXA Traumatic subcutaneous emphysema, initial encounter; X58.XXXA Exposure to other specified factors, initial encounter; Z87.11 Personal history of peptic ulcer disease; Z72.0 Tobacco use; Y93.89 Activity, other specified; Y92.89 Other specified places as the place of occurrence of the external cause; Y99.8 Other external cause status; J93.0 Spontaneous tension pneumothorax
CPT/HCPCS: 36415; 36600; 71045; 71250; 74018; 74177; 74246; 80048; 80053; 80305; 80320; 81003; 82375; 82550; 82553; 82805; 82941; 82962; 83735; 84484; 85025; 85027; 85379; 86850; 86900; 87070; 87075; 88305; 88307; 88312; 88313; 93005; 93306; 94640; 97110; 97116; 97162; 97164; 97166; 99291; C9113; J0171; J0690; J1170; J1200; J1650; J1885; J1940; J2250; J2270; J2405; J2543; J2704; J2710; J2765; J2930; J3010; J3370; J3475; J3480; J3490; J7030; J7060; Q9963; Q9967; Q9968; G0480; U0003-CS